=== PATIENT | male | born 1965 | race Caucasian/White ===

== ENCOUNTER 2022-07-15 06:41 | Day surgery (SDC) | payer OTHER ==
[2022-07-14 10:52] VITALS: BMI 28.1
[2022-07-15] MEDS ORDERED: BUPIVACAINE HCL/PF 0.5% (5MG/ML) 10 ML VIAL ONE (07:24)
[2022-07-15] MEDS ORDERED: LIDOCAINE 1%/EPI 1:100000 (20 ML MULTI DOSE VIAL) ONE (07:25)
[2022-07-15] MEDS ORDERED: MIDAZOLAM HCL 2 MG/2 ML SINGLE DOSE VIAL ONE (08:02)
[2022-07-15] MEDS ORDERED: ONDANSETRON 4 MG/2 ML VIAL ONE (08:02)
[2022-07-15] MEDS ORDERED: DEXAMETHASONE SOD PHOSPHATE 4 MG/1 ML VIAL ONE (08:02)
[2022-07-15] MEDS ORDERED: PROPOFOL 20 ML ONE (08:14)
[2022-07-15] MEDS ORDERED: SUCCINYLCHOLINE CHLORIDE 200 MG/10 ML SYRINGE ONE (08:15)
[2022-07-15] MEDS ORDERED: SEVOFLURANE 250 ML BTL ONE (08:17)
[2022-07-15] MEDS ORDERED: BUPIVACAINE HCL/PF 0.5% (5MG/ML) 10 ML VIAL IJ ONE (08:32)
[2022-07-15] MEDS ORDERED: LIDOCAINE 1%/EPI 1:100000 (20 ML MULTI DOSE VIAL) IJ ONE (08:33)
[2022-07-15] MEDS ORDERED: oxyCODONE HCL 5 MG TABLET PO PRN ×2 (09:14)
[2022-07-15] MEDS ORDERED: ONDANSETRON 4 MG/2 ML VIAL IVPUSH PRN (09:14)
[2022-07-15] MEDS ORDERED: LACTATED RINGERS SOLUTION 1,000 ML IV SCH (09:15)
[2022-07-15 09:35] VITALS: RESP 18
[2022-07-15 10:50] VITALS: BP 134/75; PULSE 66; TEMP 98
== END 2022-07-15 13:04 | disposition home or self-care (01) ==
LOC: JASU-SURG 06:41
PROVIDERS: ATTEND Orthopaedic Surgery
PROC: 0SBC4ZZ Excision of Right Knee Joint, Percutaneous Endoscopic Approach (ICD-10-PCS; principal; 2022-07-15 08:00)
DX: M23.91 Unspecified internal derangement of right knee (principal); M23.41 Loose body in knee, right knee
CPT/HCPCS: 94760